=== PATIENT | female | born 1955 | race Caucasian/White ===

== ENCOUNTER 2021-03-29 13:10 | Outpatient (CLI) | payer MEDICARE, OTHER ==
[2021-03-30 00:45] LABS: SARS-CoV-2 PCR by NAA Not Detected (NotDetected)
== END 2021-03-29 13:11 | disposition home or self-care (01) ==
LOC: LABBT 13:10
PROVIDERS: ATTEND Orthopaedic Surgery
DX: Z20.822 Contact with and (suspected) exposure to COVID-19 (principal)
CPT/HCPCS: U0003; U0005; 87635

== ENCOUNTER 2021-03-31 10:56 | Outpatient (CLI) | payer MEDICARE, OTHER | END 2021-03-31 10:57 | disposition home or self-care (01) | PROVIDERS: ATTEND Family Medicine | DX: I69.391 Dysphagia following cerebral infarction (principal); R13.10 Dysphagia, unspecified | CPT/HCPCS: 74230 ==

== ENCOUNTER 2021-05-04 08:44 | Outpatient (CLI) | payer MEDICARE, OTHER ==
[2021-05-04 10:46] LABS: #Eosinphils 0.3 10x3/uL (0.0-0.5); #Monocytes 0.7 10x3/uL (0.0-1.1); #Neutrophils 5.1 10x3/uL (1.5-8.4); %Basophils 0.5 % (0.0-2.0); %Eosinophils 3.5 % (0.0-6.0); %Lymphocytes 25.9 % (18.0-47.0); %Neutrophils 61.7 % (40.0-75.0); Hemoglobin 12.6 g/dL (12.0-15.5); Mean Corpuscular HGB CONC 32.5 g/dL (32.0-36.0); Mean Corpuscular Hemoglobin 31.3 pg (27.0-33.0); Mean Corpuscular Volume 96.5 fl (81.6-98.3); Platelet Count 312 10x3/uL (150-450); RBC Distribution Width 12.6 % (11.5-14.5); Red Blood Cell (RBC) Count 4.02 10x6/uL (3.90-5.03); White Blood Cell (WBC) Count 8.2 10x3/uL (3.5-10.5)
[2021-05-04 11:25] LABS: Anion Gap 13 mmol/L (10-20); BUN (Urea Nitrogen) 30 mg/dL (9.8-20.1); Calc. Creatinine Clearance 0 mL/min (70-130); Calcium 9.6 mg/dL (7.8-10.44); Carbon Dioxide 23 mmol/L (23-31); Chloride 109 mmol/L (98-107); Glucose 91 mg/dL (80-115); Potassium 4.2 mmol/L (3.5-5.1); Sodium 141 mmol/L (136-145)
== END 2021-05-04 08:45 | disposition home or self-care (01) ==
LOC: LABBT 08:44
PROVIDERS: ATTEND Orthopaedic Surgery
DX: Z01.818 Encounter for other preprocedural examination (principal); S82.841A Displaced bimalleolar fracture of right lower leg, initial encounter for closed fracture
CPT/HCPCS: 80048; 85025; 93005; 93010

== ENCOUNTER 2021-05-06 09:20 | Day surgery (SDC) | payer MEDICARE, OTHER ==
[2021-05-05 10:06] VITALS: BMI 29.2
[2021-05-06] MEDS ORDERED: Midazolam HCl 2 mg/2 ml Vial ONE (09:59)
[2021-05-06] MEDS ORDERED: Fentanyl 100 MCG/2 ML VIAL ONE ×4 (09:59→13:04)
[2021-05-06] MEDS ORDERED: Bupivacaine HCl 0.5%/Epinephrine 1:200,000/PF 30 ml Vial ONE (10:30)
[2021-05-06] MEDS ORDERED: Dexamethasone 20 MG/5 ML VIAL ONE (10:36)
[2021-05-06] MEDS ORDERED: PHENYLEPHRINE-NS 100 MCG/ML 10 ML SYRINGE ONE (10:36)
[2021-05-06] MEDS ORDERED: Ketorolac Tromethamine 30 MG/ML VIAL ONE (10:36)
[2021-05-06] MEDS ORDERED: Ondansetron PF 4 MG/2 ML Vial ONE (10:36)
[2021-05-06] MEDS ORDERED: PROPOFOL 200 MG/20 ML VIAL ONE (10:36)
[2021-05-06] MEDS ORDERED: Lidocaine 1% PF 5 ML VIAL ONE (10:36)
[2021-05-06] MEDS ORDERED: ePHEDrine Sulfate 50 MG/10 ML VIAL ONE (10:36)
[2021-05-06] MEDS ORDERED: Bupivacaine 0.25% HCL 30 ML VIAL ONE (11:50)
[2021-05-06] MEDS ORDERED: EPINEPHrine 1 MG/ML AMP ONE (11:50)
== END 2021-05-06 15:01 | disposition home or self-care (01) ==
LOC: SDC 09:20
PROVIDERS: ATTEND Orthopaedic Surgery
PROC: 0QSJ04Z Reposition Right Fibula with Internal Fixation Device, Open Approach (ICD-10-PCS; principal; 2021-05-06)
PROC: 0QSG04Z Reposition Right Tibia with Internal Fixation Device, Open Approach (ICD-10-PCS; 2021-05-06)
PROC: 0LNN3ZZ Release Right Lower Leg Tendon, Percutaneous Approach (ICD-10-PCS; 2021-05-06)
DX: S82.841A Displaced bimalleolar fracture of right lower leg, initial encounter for closed fracture (principal); M67.01 Short Achilles tendon (acquired), right ankle; I69.398 Other sequelae of cerebral infarction; I69.351 Hemiplegia and hemiparesis following cerebral infarction affecting right dominant side; I69.392 Facial weakness following cerebral infarction; I10 Essential (primary) hypertension; J45.909 Unspecified asthma, uncomplicated; I69.312 Visuospatial deficit and spatial neglect following cerebral infarction; Z79.51 Long term (current) use of inhaled steroids; Z79.82 Long term (current) use of aspirin; Z79.899 Other long term (current) drug therapy; Z91.018 Allergy to other foods; W19.XXXA Unspecified fall, initial encounter
CPT/HCPCS: 27606; 27814; 73610; 76000; C1713 ×3; C1769; J0171; J0690; J1100; J1885; J2250; J2405; J2704; J3010; S0020

== ENCOUNTER 2022-02-07 13:27 | Outpatient (CLI) | payer MEDICARE, OTHER ==
[2022-02-07 23:44] LABS: SARS-CoV-2 PCR by NAA Not Detected (NotDetected)
== END 2022-02-07 13:28 | disposition home or self-care (01) ==
LOC: EDBD → LABBT 13:27
PROVIDERS: ATTEND Family Medicine
DX: Z20.822 Contact with and (suspected) exposure to COVID-19 (principal)
CPT/HCPCS: U0003; U0005

== ENCOUNTER 2022-02-09 10:24 | Outpatient (CLI) | payer MEDICARE, OTHER | END 2022-02-09 10:25 | disposition home or self-care (01) | LOC: EDBD | PROVIDERS: ATTEND Family Medicine | DX: I69.191 Dysphagia following nontraumatic intracerebral hemorrhage (principal); R13.10 Dysphagia, unspecified; R63.30 Feeding difficulties, unspecified | CPT/HCPCS: 74230 ==

== ENCOUNTER 2022-02-10 09:10 | Outpatient (CLI) | payer MEDICARE, OTHER | END 2022-02-10 09:11 | disposition home or self-care (01) | LOC: EDBD → TBSIIMAG 09:10 | PROVIDERS: ATTEND Family Medicine | DX: I69.351 Hemiplegia and hemiparesis following cerebral infarction affecting right dominant side (principal); G43.919 Migraine, unspecified, intractable, without status migrainosus; I63.81 Other cerebral infarction due to occlusion or stenosis of small artery | CPT/HCPCS: 70553 ==

== ENCOUNTER 2023-10-06 07:03 | Day surgery (SDC) | payer MEDICARE, OTHER ==
[2023-10-04 13:55] VITALS: BMI 32.9
[2023-10-06] MEDS ORDERED: PROPOFOL 200 MG/20 ML VIAL ONE (07:45)
[2023-10-06] MEDS ORDERED: Lidocaine 1% PF 5 ML VIAL ONE (07:45)
[2023-10-06] MEDS ORDERED: Glucagon 1 MG/ML KIT ONE (07:56)
== END 2023-10-06 09:45 | disposition home or self-care (01) ==
LOC: SDC 07:03
PROVIDERS: ATTEND Internal Medicine
PROC: 0DB68ZX Excision of Stomach, Via Natural or Artificial Opening Endoscopic, Diagnostic (ICD-10-PCS; principal; 2023-10-06)
PROC: 0DBM8ZZ Excision of Descending Colon, Via Natural or Artificial Opening Endoscopic (ICD-10-PCS; 2023-10-06)
PROC: 0DBN8ZX Excision of Sigmoid Colon, Via Natural or Artificial Opening Endoscopic, Diagnostic (ICD-10-PCS; 2023-10-06)
DX: Z12.11 Encounter for screening for malignant neoplasm of colon (principal); D12.4 Benign neoplasm of descending colon; K57.30 Diverticulosis of large intestine without perforation or abscess without bleeding; K64.4 Residual hemorrhoidal skin tags; K64.9 Unspecified hemorrhoids; K31.89 Other diseases of stomach and duodenum; K44.9 Diaphragmatic hernia without obstruction or gangrene; K29.50 Unspecified chronic gastritis without bleeding; K21.00 Gastro-esophageal reflux disease with esophagitis, without bleeding; F32.A Depression, unspecified; K76.0 Fatty (change of) liver, not elsewhere classified; E78.5 Hyperlipidemia, unspecified; I10 Essential (primary) hypertension; Z90.49 Acquired absence of other specified parts of digestive tract; Z98.49 Cataract extraction status, unspecified eye; Z98.51 Tubal ligation status; Z79.899 Other long term (current) drug therapy
CPT/HCPCS: 43239; 45380; 45385; J1611; 88305; J2704

== ENCOUNTER 2023-12-19 09:51 | Outpatient (CLI) | payer MEDICARE, OTHER | END 2023-12-19 09:52 | disposition home or self-care (01) | LOC: RAD 09:51 | PROVIDERS: ATTEND Internal Medicine | DX: R06.00 Dyspnea, unspecified (principal) | CPT/HCPCS: 71046 ==

== ENCOUNTER 2024-01-08 13:55 | Outpatient (CLI) | payer MEDICARE, OTHER ==
[2024-01-08 16:10] LABS: #Eosinphils 0.2 10x3/uL (0.0-0.5); #Neutrophils 5.1 10x3/uL (1.5-8.4); %Basophils 0.3 % (0.0-2.0); %Eosinophils 2.1 % (0.0-6.0); %Lymphocytes 29.2 % (18.0-47.0); %Monocytes 11.1 % (0.0-10.0); Hematocrit 38.7 % (34.9-44.5); Hemoglobin 12.3 g/dL (12.0-15.5); Mean Corpuscular HGB CONC 31.8 g/dL (32.0-36.0); Mean Corpuscular Hemoglobin 30.1 pg (27.0-33.0); Mean Corpuscular Volume 94.9 fl (81.6-98.3); Mean Platelet Volume 10.2 fl (7.4-10.4); Platelet Count 307 10x3/uL (150-450); RBC Distribution Width 13.2 % (11.5-14.5); Red Blood Cell (RBC) Count 4.08 10x6/uL (3.90-5.03)
[2024-01-08 16:11] LABS: Anion Gap 12 mmol/L (10-20); BUN (Urea Nitrogen) 30 mg/dL (9.8-20.1); Calc. Creatinine Clearance 0 mL/min (70-130); Calcium 9.2 mg/dL (7.8-10.44); Carbon Dioxide 24 mmol/L (23-31); Chloride 107 mmol/L (98-107); Estimated GFR 45; Glucose 89 mg/dL (80-115); Potassium 4.2 mmol/L (3.5-5.1); Sodium 139 mmol/L (136-145)
== END 2024-01-08 13:56 | disposition home or self-care (01) ==
LOC: LABBT 13:55
PROVIDERS: ATTEND Surgery
DX: Z01.818 Encounter for other preprocedural examination (principal); K44.9 Diaphragmatic hernia without obstruction or gangrene
CPT/HCPCS: 80048; 85025; 93005; 93010

== ENCOUNTER 2024-01-16 06:27 | Day surgery (SDC) | payer MEDICARE, OTHER ==
[2024-01-08 14:59] VITALS: BMI 33.6
[2024-01-16] MEDS ORDERED: Bupivacaine 0.25% HCL 30 ML VIAL ONE (06:47)
[2024-01-16] MEDS ORDERED: EPINEPHrine 1 MG/ML VIAL ONE (06:47)
[2024-01-16] MEDS ORDERED: fentaNYL PF 100 MCG/2 ML SYRINGE ONE (07:02)
[2024-01-16] MEDS ORDERED: PROPOFOL 20 ML ONE (07:04)
[2024-01-16] MEDS ORDERED: Rocuronium Bromide 10 MG/ML (10ML VIAL) ONE (07:04)
[2024-01-16] MEDS ORDERED: Lidocaine 1% PF 5 ML VIAL ONE (07:04)
[2024-01-16] MEDS ORDERED: Famotidine/PF 20 mg/2ml Vial ONE (07:19)
[2024-01-16] MEDS ORDERED: Propofol 500 MG/50 ML VIAL ONE (07:22)
[2024-01-16] MEDS ORDERED: CEFAZOLIN 2 GM VIAL ONE (07:40)
[2024-01-16] MEDS ORDERED: Sodium Chloride 0.9% 100 ML ONE (07:40)
[2024-01-16] MEDS ORDERED: ePHEDrine Sulfate 50 MG/10 ML VIAL ONE (08:16)
[2024-01-16] MEDS ORDERED: Dexamethasone 20 MG/5 ML VIAL ONE (08:20)
[2024-01-16] MEDS ORDERED: Phenylephrine 10 MG/ML VIAL ONE (08:32)
[2024-01-16] MEDS ORDERED: Ondansetron PF 4 MG/2 ML Vial ONE (08:32)
[2024-01-16] MEDS ORDERED: SUGAMMADEX SODIUM 200 MG/2 ML VIAL ONE ×2 (08:34→08:37)
[2024-01-16] MEDS ORDERED: fentaNYL 50 mcg/mL 1 mL Vial ONE (09:23)
[2024-01-16] MEDS ORDERED: HYDROcodone/Acetaminophen 5/325 mg Tablet ONE (09:56)
== END 2024-01-16 11:14 | disposition home or self-care (01) ==
LOC: SDC 06:27
PROVIDERS: ATTEND Surgery
PROC: 0WJP4ZZ Inspection of Gastrointestinal Tract, Percutaneous Endoscopic Approach (ICD-10-PCS; principal; 2024-01-16)
DX: K44.9 Diaphragmatic hernia without obstruction or gangrene (principal); K66.0 Peritoneal adhesions (postprocedural) (postinfection)
CPT/HCPCS: 49320; J0171; J3010; J0665; J1100; J2371; J2405; J2704; J3490; S0028

== ENCOUNTER 2024-09-25 06:53 | Day surgery (SDC) | payer MEDICARE, OTHER ==
[2024-09-24 09:54] VITALS: BMI 33.6
[2024-09-25] MEDS ORDERED: PROPOFOL 60 ML ONE (09:25)
[2024-09-25] MEDS ORDERED: Lidocaine 2% PF 5 ML VIAL ONE (09:25)
== END 2024-09-25 11:25 | disposition home or self-care (01) ==
LOC: SDC 06:53
PROVIDERS: ATTEND Internal Medicine
PROC: 0DBH8ZZ Excision of Cecum, Via Natural or Artificial Opening Endoscopic (ICD-10-PCS; principal; 2024-09-25)
PROC: 0DBK8ZZ Excision of Ascending Colon, Via Natural or Artificial Opening Endoscopic (ICD-10-PCS; 2024-09-25)
DX: D12.2 Benign neoplasm of ascending colon (principal); D12.0 Benign neoplasm of cecum; R13.10 Dysphagia, unspecified; R74.8 Abnormal levels of other serum enzymes; K64.4 Residual hemorrhoidal skin tags; K57.30 Diverticulosis of large intestine without perforation or abscess without bleeding; K64.8 Other hemorrhoids; K21.9 Gastro-esophageal reflux disease without esophagitis; K76.0 Fatty (change of) liver, not elsewhere classified; I10 Essential (primary) hypertension; E78.5 Hyperlipidemia, unspecified; F32.A Depression, unspecified; J45.909 Unspecified asthma, uncomplicated; Z86.73 Personal history of transient ischemic attack (TIA), and cerebral infarction without residual deficits; Z86.0100 Personal history of colon polyps, unspecified; Z90.49 Acquired absence of other specified parts of digestive tract; Z98.49 Cataract extraction status, unspecified eye; Z98.51 Tubal ligation status; Z91.02 Food additives allergy status; Z91.018 Allergy to other foods; Z79.51 Long term (current) use of inhaled steroids; Z79.1 Long term (current) use of non-steroidal anti-inflammatories (NSAID); Z79.02 Long term (current) use of antithrombotics/antiplatelets; Z79.899 Other long term (current) drug therapy; Z88.8 Allergy status to other drugs, medicaments and biological substances
CPT/HCPCS: 45385; J2704; 88305